=== PATIENT | female | born 1980 | race Hispanic/Latino ===

== ENCOUNTER 2018-01-29 21:14 | Emergency (ER) | payer OTHER ==
[2018-01-29 21:25] VITALS: BP 113/76; PULSE 71; RESP 20; TEMP 98.5; O2SAT 98
[2018-01-29] MEDS ORDERED: Lidocaine 2% Inj (20ml) INFIL ONE (22:15)
[2018-01-29] MEDS ORDERED: Bacitracin 500 Units/gm Oint Foilpak UD TOP ONE (22:15)
--- NOTE | 2018-01-29 22:17 | C.PDOC ---
History Of Present Illness 38 yo female c/o left hand laceration just prior to arrival. Pt notes that her was standing in the kitchen holding a knife, she turned and he accidentally cut her hand. No change in sensation. Right hand dominant. Pt is . Time Seen by Provider: 01/29/18 21:57 Chief Complaint (Nursing): Abnormal Skin Integrity History Per: Patient History/Exam Limitations: no limitations Onset/Duration Of Symptoms: Mins Past Medical History Vital Signs: Last Vital Signs Temp 98.5 F 01/29/18 21:20 Pulse 71 01/29/18 21:20 Resp 20 01/29/18 22:32 BP 113/76 01/29/18 21:20 Pulse Ox 98 01/30/18 16:27 Family History: States: Unknown Family Hx - Social History Hx Alcohol Use: No Hx Substance Use: No - Immunization History Hx Tetanus Toxoid Vaccination: Yes Hx Influenza Vaccination: Yes Hx Pneumococcal Vaccination: Yes Review Of Systems Constitutional: Negative for: Fever Cardiovascular: Negative for: Chest Pain Respiratory: Negative for: Shortness of Breath Neurological: Negative for: Weakness, Numbness Physical Exam - Physical Exam Appears: Well, Non-toxic, No Acute Distress Skin: Warm, Dry, Other ((+) 2 cm laceration to the left 1st proximal phalanx) Head: Atraumatic, Normacephalic Eye(s): bilateral: Normal Inspection, EOMI Nose: Normal Oral Mucosa: Moist Throat: Normal Neck: Normal Chest: Symmetrical Respiratory: No Accessory Muscle Use Back: Normal Inspection Extremity: Normal ROM, Capillary Refill (<2 sec) Pulses: Left Radial: Normal, Right Radial: Normal Neurological/Psych: Oriented x3, Normal Motor (5/5 against resistance), Normal Sensation ED Course And Treatment O2 Sat by Pulse Oximetry: 98 (RA) Pulse Ox Interpretation: Normal Progress Note: Laceration repaired without difficulty (see procedure note). Bacitracin and sterile dressing applied. Patient advised to follow up in 2 days for wound check and 7-10 for suture removal. Educated patient on wound care, all questions answered. Return precautions discussed, patient is understanding of discharge plan. Laceration - Laceration Repair Left finger laceration Wound Length (In cm): 2 Description Of Wound: Linear Wound Cleansed With: Betadine Anesthesia: Lidocaine 2% Wound Examination: Irrigated With Saline, No FB With Wound Exploration, No Tendon Injury With Wound Exploration Wound Closure: Suture (x3) Suture Technique And Material Used: Nylon (5:0) Wound Complexity: Simple Disposition - Disposition Disposition: HOME/ ROUTINE Disposition Time: 22:16 Condition: STABLE Additional Instructions: Wound check in 2 days. Suture removal in 7 -10 days. Watch for signs of infection including redness, swelling, or discharge. Instructions: Laceration Repair With Stitches (DC) Forms: [employer] ([employer]) - Clinical Impression Clinical Impression: Laceration of hand
[2018-01-29] MEDS ORDERED: Bacitracin 500 Units/gm Oint Foilpak UD ONE (22:22)
== END 2018-01-29 22:32 | disposition home or self-care (01) ==
LOC: C.ER 21:14
DX: S61.012A Laceration without foreign body of left thumb without damage to nail, initial encounter (principal); W26.0XXA Contact with knife, initial encounter; Y92.000 Kitchen of unspecified non-institutional (private) residence as the place of occurrence of the external cause